=== PATIENT | male | born 2000 | race Caucasian/White ===

== ENCOUNTER 2018-06-03 23:01 | Emergency (ER) | payer BC ==
[2018-06-03] MEDS ORDERED: ONDANSETRON 4 MG/2 ML VIAL ONE (23:09)
[2018-06-03] MEDS ORDERED: ONDANSETRON 4 MG/2 ML VIAL IVP ONE (23:10)
[2018-06-03] MEDS ORDERED: NS 1,000 ML IV ONE (23:11)
--- NOTE | 2018-06-03 23:27 | EDPHY ---
H & P Stated Complaint: generalized abd pain, N/V x1 hour Time Seen by Provider: 06/03/18 23:17 HPI/ROS: HPI The patient presents with nausea, vomiting, abdominal pain which began about 1 hr prior to presentation. Tonight he was home and had several alcoholic drinks. He then began to feel nauseated and vomited several times. After this he developed crampy upper abdominal pain which lasted for about 30 min and improved on its own. He is now feeling much better. He has been feeling well lately, was recently diagnosed with flu. REVIEW OF SYSTEMS 10 systems were reviewed and negative with the exception of the elements mentioned in the history of present illness. PMHx: Healthy Soc Hx: College student, drinks alcohol PHYSICAL General Appearance: Alert, no distress Eyes: Pupils equal and round no pallor or injection ENT, Mouth: Mucous membranes moist Respiratory: There are no retractions, lungs are clear to auscultation Cardiovascular: Regular rate and rhythm Gastrointestinal: Abdomen is soft and non-tender, no masses, bowel sounds normal Neurological: A&O, moves all extremities Skin: Warm and dry, no rashes Musculoskeletal: Neck is supple non tender Extremities: symmetrical, full range of motion Psychiatric: Patient is oriented X 3, there is no agitation Source: Patient Exam Limitations: No limitations - Personal History Current Tetanus/Diphtheria Vaccine: Yes - Medical/Surgical History Hx Asthma: No Hx Chronic Respiratory Disease: No Hx Diabetes: No Hx Cardiac Disease: No Hx Renal Disease: No Hx Cirrhosis: No Hx Alcoholism: No Hx HIV/AIDS: No Hx Splenectomy or Spleen Trauma: No Other PMH: denies - Social History Smoking Status: Current every day smoker Constitutional: Initial Vital Signs Temperature (C) 36.5 C 06/03/18 23:04 Heart Rate 109 H 06/03/18 23:04 Respiratory Rate 16 06/03/18 23:04 Blood Pressure 114/70 06/03/18 23:04 O2 Sat (%) 98 06/03/18 23:04 O2 Delivery Mode Room Air Allergies/Adverse Reactions: No Known Allergies Allergy (Unverified 06/03/18 23:05) Home Medications: Medication Instructions Recorded NK [No Known Home Meds] 06/03/18 Medical Decision Making Differential Diagnosis: 18-year-old healthy college male presents with nausea, vomiting, abdominal pain which began about 1 hr prior to presentation in the setting of alcohol use. Here, vital signs are normal, he is generally well-appearing, his abdominal exam is benign. Differential diagnosis includes viral gastroenteritis, toxin mediated enterocolitis, alcoholic gastritis, pancreatitis. Plan for basic labs, IV fluids. Labs demonstrated mild leukocytosis as well as signs of dehydration. After fluids and Zofran patient felt much better. Was able to drink water without difficulty. I reexamined him in his repeat abdominal exam is entirely benign. I feel he is likely suffering from gastroenteritis versus as alcohol induced vomiting. I have discussed this with him. I plan to discharge him home. I have given him return precautions. - Data Points Laboratory Results: Laboratory Results 06/03/18 23:15 06/03/18 23:15 06/03/18 06/03/18 23:15 23:15 WBC 13.01 10^3/uL H 10^3/uL (3.80-9.50) RBC 6.33 10^6/uL 10^6/uL (4.40-6.38) Hgb 14.6 g/dL g/dL (13.7-17.5) Hct 43.4 % % (40.0-51.0) MCV 68.6 fL L fL (81.5-99.8) MCH 23.1 pg L pg (27.9-34.1) MCHC 33.6 g/dL g/dL (32.4-36.7) RDW 14.7 % % (11.5-15.2) Plt Count 451 10^3/uL H 10^3/uL (150-400) MPV 8.8 fL fL (8.7-11.7) Neut % (Auto) 68.8 % % (39.3-74.2) Lymph % (Auto) 21.8 % % (15.0-45.0) [place] % (Auto) 8.0 % % (4.5-13.0) Eos % (Auto) 0.4 % L % (0.6-7.6) Baso % (Auto) 0.5 % % (0.3-1.7) Nucleat RBC Rel Count 0.0 % % (0.0-0.2) Absolute Neuts (auto) 8.96 10^3/uL H 10^3/uL (1.70-6.50) Absolute Lymphs (auto) 2.83 10^3/uL 10^3/uL (1.00-3.00) Absolute Monos (auto) 1.04 10^3/uL H 10^3/uL (0.30-0.80) Absolute Eos (auto) 0.05 10^3/uL 10^3/uL (0.03-0.40) Absolute Basos (auto) 0.06 10^3/uL 10^3/uL (0.02-0.10) Absolute Nucleated RBC 0.00 10^3/uL 10^3/uL (0-0.01) Immature Gran % 0.5 % % (0.0-1.1) Immature Gran # 0.07 10^3/uL 10^3/uL (0.00-0.10) Smear Review By Pending Sodium 139 mEq/L mEq/L (135-145) Potassium 3.2 mEq/L L mEq/L (3.5-5.2) Chloride 105 mEq/L mEq/L (97-110) Carbon Dioxide 19 mEq/l L mEq/l (22-31) Anion Gap 15 mEq/L H mEq/L (6-14) BUN 16 mg/dL mg/dL (7-23) Creatinine 0.9 mg/dL mg/dL (0.7-1.3) Estimated GFR > 60 Glucose 110 mg/dL H mg/dL (70-100) Calcium 9.4 mg/dL mg/dL (8.5-10.4) Total Bilirubin 0.6 mg/dL mg/dL (0.1-1.4) AST 91 IU/L H IU/L (17-59) ALT 55 IU/L IU/L (21-72) Alkaline Phosphatase 84 IU/L IU/L (38-126) Total Protein 7.2 g/dL g/dL (6.3-8.2) Albumin 4.4 g/dL g/dL (3.5-5.0) Lipase 48 IU/L IU/L (23-300) Medications Given: Discontinued Medications Sodium Chloride (Ns) 1,000 mls @ 0 mls/hr IV ONCE ONE; Wide Open PRN Reason: Protocol Stop: 06/03/18 23:12 Last Admin: 06/03/18 23:17 Dose: 1,000 mls Ketorolac Tromethamine (Toradol) 15 mg IVP EDNOW ONE Stop: 06/04/18 00:06 Last Admin: 06/04/18 00:07 Dose: 15 mg Ondansetron HCl (Zofran) 4 mg IVP EDNOW ONE Stop: 06/03/18 23:11 Last Admin: 06/03/18 23:17 Dose: 4 mg Ondansetron HCl (Zofran Odt 4 Mg Prepack#2) 1 btl TAKEHOME EDNOW ONE Stop: 06/04/18 00:39 Last Admin: 06/04/18 00:58 Dose: 1 btl Departure - Departure Disposition: Home, Routine, Self-Care Clinical Impression: Nausea & vomiting Qualifiers: Vomiting type: unspecified Vomiting Intractability: non-intractable Qualified Code(s): R11.2 - Nausea with vomiting, unspecified Abdominal pain Qualifiers: Abdominal location: generalized Qualified Code(s): R10.84 - Generalized abdominal pain Condition: Good Instructions: Ondansetron (By mouth), Acute Nausea and Vomiting (ED) Additional Instructions: Please make sure to drink plenty of fluids until your feeling better. You should return to the emergency department if your worse in any way. Referrals: [facility] [Clinic] - As per Instructions Stand Alone Forms: School Excuse
[2018-06-03 23:43] LABS: PLATELET COUNT 451 10^3/uL (150-400)
[2018-06-04] MEDS ORDERED: KETOROLAC 15 MG/1 ML SDV IVP ONE (00:05)
[2018-06-04] MEDS ORDERED: ONDANSETRON 4MG PREPACK#2 BTL TAKEHOME ONE (00:38)
[2018-06-04 01:09] VITALS: BP 103/65
== END 2018-06-04 01:09 | disposition home or self-care (01) ==
DX: R11.2 Nausea with vomiting, unspecified (principal); R10.84 Generalized abdominal pain; E86.9 Volume depletion, unspecified
CPT/HCPCS: 96374; J1885; J2405